=== PATIENT | female | born 1965 | race African-American/Black ===

== ENCOUNTER 2022-11-16 14:54 | Inpatient (IN) | payer MEDICAID, OTHER ==
[~2022-11-16] VITALS: Ht 167.6 cm; Wt 56.7 kg
[2022-11-16] MEDS ORDERED: KETOROLAC 30MG/ML VIAL IV STA (15:27)
[2022-11-16] MEDS ORDERED: SODIUM CHLORIDE 0.9% 1,000 ML IV ONE (15:30)
[2022-11-16 16:08] LABS: BASOPHILS % 0.3 % (0.0-2.0); EOSINOPHILS % 0.1 % (0.0-5.0); HEMATOCRIT. 37.9 % (36.0-48.0); HEMOGLOBIN. 12.6 g/dL (12.0-16.0); LYMPHOCYTES % 12.1 % (20.0-50.0); MEAN CORPUSCULAR HEMOGLOBIN 29.8 pg (28.0-32.0); MEAN CORPUSCULAR VOLUME 89.6 fL (81.0-99.0); MEAN PLATELET VOLUME 9.2 fl (7.4-10.4); MONOCYTES % 3.4 % (2.0-8.0); NEUTROPHILS % 84.1 % (40.0-76.0); PLATELET 683 x1000/uL (130-400); RED BLOOD CELL COUNT 4.23 mill/uL (4.2-5.4); RED CELL DISTRIBUTION WIDTH 14.2 % (11.6-14.6)
[2022-11-16 16:14] LABS: PROTHROMBIN TIME 10.3 sec (9.6-11.0)
[2022-11-16 16:15] LABS: CHLORIDE 86 mEq/L (98-107)
[2022-11-16] MEDS ORDERED: ONDANSETRON HCL 4MG/2ML INJ IV ONE (16:30)
[2022-11-16 16:38] LABS: ETHANOL BLOOD < 10 mg/dL
[2022-11-16] MEDS ORDERED: MORPHINE SULFATE 4 MG/ML CPJ (NOT FOR IM USE) IV STA (16:46)
[2022-11-16] MEDS ORDERED: PIPERACILLIN/TAZOBACTAM 3.375GM/50ML PREMIX IV ONE (17:00)
[2022-11-16] MEDS ORDERED: METRONIDAZOLE 500 MG PREMIX 100 ML IV ONE (17:00)
[2022-11-16] MEDS ORDERED: CEFTRIAXONE 1GM PREMIX 50 ML IV ONE (17:00)
[2022-11-16] MEDS ORDERED: SODIUM CHLORIDE 0.9% 1000ML BAG (SEPSIS BOLUS) IV ONE (17:00)
[2022-11-16] MEDS ORDERED: PIPERACILLIN/TAZOBACTAM 3.375G in DEXT 5% WATER 50ML IV NR (17:30)
[2022-11-16 17:32] LABS: BETA HYDROXYBUTYRATE 4.2 mMol/L (0.0-0.3); PHOSPHORUS 6.2 mg/dL (2.5-4.9)
[2022-11-16] MEDS ORDERED: PIPERACILLIN/TAZ 3.375G PREMIX 50 ML IV NR ×2 (17:45→20:15)
[2022-11-16] MEDS ORDERED: IOHEXOL-350 100 ML BOTTLE ONE (18:09)
[2022-11-16] MEDS ORDERED: MORPHINE SULFATE 4 MG/ML CPJ (NOT FOR IM USE) IV NR (19:00)
[2022-11-16 19:10] LABS: CLARITY URINE CLEAR (CLEAR); COLOR URINE YELLOW (YELLOW); KETONES URINE 1+ (NEGATIVE); LEUKOCYTE ESTERASE URINE NEGATIVE (NEGATIVE); NITRITE URINE NEGATIVE (NEGATIVE); OCCULT BLOOD URINE NEGATIVE (NEGATIVE); PROTEIN URINE NEGATIVE (NEGATIVE); SPECIFIC GRAVITY URINE 1.037 (1.005-1.030); UROBILINOGEN URINE 0.2 E.U./dL (0.2-1.0)
[2022-11-16] MEDS ORDERED: MAGNESIUM/ALUMINUM HYDROXIDE/SIMETHICONE 30ML UDC PO PRN (19:45)
[2022-11-16] MEDS ORDERED: CLONIDINE 0.1MG TABLET PO PRN (19:45)
[2022-11-16] MEDS ORDERED: IPRATROPIUM/ALBUTEROL 0.5-3(2.5)MG/3ML NEB NEB PRN (19:45)
[2022-11-16] MEDS ORDERED: DEXTROSE 50% WATER 50ML SYRINGE IV PRN (19:45)
[2022-11-16] MEDS ORDERED: DOCUSATE SODIUM 100MG CAPSULE PO PRN (19:45)
[2022-11-16] MEDS ORDERED: INSULIN REGULAR (HUMULIN R) 300UNITS/3ML VIAL IV PRN (19:45)
[2022-11-16] MEDS ORDERED: SODIUM BICARBONATE 8.4% 1 MEQ/ML 50ML SYR IV NR (19:45)
[2022-11-16] MEDS ORDERED: GUAIFENESIN 200MG/10ML SUGAR FREE UDC PO PRN (19:45)
[2022-11-16] MEDS ORDERED: ACETAMINOPHEN 325MG TABLET PO PRN (19:45)
[2022-11-16] MEDS ORDERED: SODIUM CHLORIDE 0.45% 1,000 ML IV SCH (20:00)
[2022-11-16] MEDS ORDERED: MAGNESIUM 1 G PREMIX 100 ML IV PRN (20:00)
[2022-11-16] MEDS: DEXT 5%/0.45% NACL 1000ML 1,000 ML IV SCH (20:00)
[2022-11-16] MEDS ORDERED: KCL 20MEQ/100ML PREMIX 100 ML IV PRN (20:00)
[2022-11-16] MEDS ORDERED: SODIUM CHLORIDE 0.9% 1,000 ML IV SCH (20:00)
[2022-11-16] MEDS ORDERED: INSULIN REGULAR 100U/100ML PMX 100 ML IV SCH (20:30)
[2022-11-16] MEDS ORDERED: VANCOMYCIN 1G PREMIX 200 ML IV NR (20:30)
[2022-11-16 20:53] LABS: CHLORIDE 97 mEq/L (98-107)
[2022-11-16 20:54] LABS: BG BASE EXCESS -4.6 mmol/L (-2.0-2.0); BG CARBOXYHEMOGLOBIN 0.5 % (0.5-1.5); BG DEOXYHEMOGLOBIN 2.9 % (0.0-5.0); BG HCO3 ACT 18.1 mmol/L (22.0-26.0); BG METHEMOGLOBIN 0.2 % (0.0-1.5); BG OXYGEN SATURATION 97.1 % (92.0-98.5); BG OXYHEMOGLOBIN 96.4 % (94.0-97.0); BG PH 7.443 (7.350-7.450); BG PO2 94.8 mmHg (75.0-100.0); BG SAMPLE SITE LEFT RADIAL; BG TOTAL HEMOGLOBIN 12.8 g/dL (12.0-18.0); BG VENT MODE ROOM AIR
[2022-11-16] MEDS: ACETAMINOPHEN 325MG TABLET PO PRN (20:57)
[2022-11-16 20:58] LABS: PHOSPHORUS 4.8 mg/dL (2.5-4.9)
[2022-11-16] MEDS: BLOOD SUGAR DIAGNOSTIC STRIP TEST SCH ×3 (21:00→23:15)
[2022-11-16] MEDS ORDERED: KETOROLAC 10MG TABLET PO PRN (22:15)
[2022-11-16] MEDS: ENOXAPARIN 40MG/0.4ML SYR SUBCUT SCH (23:34)
[2022-11-17] MEDS: BLOOD SUGAR DIAGNOSTIC STRIP TEST SCH ×10 (00:15→21:00)
[2022-11-17 00:22] LABS: BASOPHILS % 0.2 % (0.0-2.0); EOSINOPHILS % 0.4 % (0.0-5.0); HEMATOCRIT. 31.5 % (36.0-48.0); HEMOGLOBIN. 10.6 g/dL (12.0-16.0); LYMPHOCYTES % 17.1 % (20.0-50.0); MEAN CORPUSCULAR HEMOGLOBIN 29.5 pg (28.0-32.0); MEAN CORPUSCULAR VOLUME 87.8 fL (81.0-99.0); MEAN PLATELET VOLUME 8.1 fl (7.4-10.4); MONOCYTES % 9.1 % (2.0-8.0); NEUTROPHILS % 73.2 % (40.0-76.0); PLATELET 587 x1000/uL (130-400); RED BLOOD CELL COUNT 3.59 mill/uL (4.2-5.4); RED CELL DISTRIBUTION WIDTH 14.3 % (11.6-14.6)
[2022-11-17 00:26] LABS: CHLORIDE 102 mEq/L (98-107)
[2022-11-17 00:32] LABS: PHOSPHORUS 2.9 mg/dL (2.5-4.9)
[2022-11-17] MEDS ORDERED: PIPERACILLIN/TAZ 3.375G PREMIX 50 ML IV NR (01:00)
[2022-11-17] MEDS: ACETAMINOPHEN 325MG TABLET PO PRN (01:28)
[2022-11-17 03:42] LABS: BASOPHILS % 0.7 % (0.0-2.0); EOSINOPHILS % 0.4 % (0.0-5.0); HEMATOCRIT. 30.9 % (36.0-48.0); HEMOGLOBIN. 10.4 g/dL (12.0-16.0); LYMPHOCYTES % 24.9 % (20.0-50.0); MEAN CORPUSCULAR HEMOGLOBIN 29.5 pg (28.0-32.0); MEAN CORPUSCULAR VOLUME 87.5 fL (81.0-99.0); MONOCYTES % 9.8 % (2.0-8.0); NEUTROPHILS % 64.2 % (40.0-76.0); PLATELET 553 x1000/uL (130-400); RED BLOOD CELL COUNT 3.53 mill/uL (4.2-5.4)
[2022-11-17] MEDS ORDERED: KETOROLAC 30MG/ML VIAL IV PRN (03:45)
[2022-11-17 04:00] LABS: CHLORIDE 102 mEq/L (98-107); PHOSPHORUS 2.8 mg/dL (2.5-4.9)
[2022-11-17] MEDS ORDERED: PIPERACILLIN/TAZOBACTAM 3.375 G in DEXTROSE 5% WATER 50 ML IV SCH (06:00)
[2022-11-17] MEDS: PIPERACILLIN/TAZOBACTAM 3.375 G in DEXTROSE 5% WATER 50 ML IV SCH ×3 (06:15→22:22)
[2022-11-17] MEDS: DEXT 5%/0.45% NACL 1000ML 1,000 ML IV SCH ×3 (06:15→16:00)
[2022-11-17 06:18] LABS: CHLORIDE 105 mEq/L (98-107)
[2022-11-17 06:34] LABS: HDL CHOLESTEROL 30 mg/dL (40-59); LDL CHOLESTEROL 190 mg/dL (5-100); T4 FREE 1.37 ng/dL (0.76-1.46)
[2022-11-17] MEDS ORDERED: DEXTROSE 50% WATER 50ML SYRINGE IV PRN (08:15)
[2022-11-17] MEDS: INSULIN LISPRO 100 UNITS/ML SUBCUT SCH ×6 (08:15→21:00)
[2022-11-17 08:44] LABS: BG BASE EXCESS -0.7 mmol/L (-2.0-2.0); BG CARBOXYHEMOGLOBIN 0.3 % (0.5-1.5); BG DEOXYHEMOGLOBIN 2.3 % (0.0-5.0); BG FRACTION INSPIRED OXYGEN 21; BG HCO3 ACT 22.2 mmol/L (22.0-26.0); BG METHEMOGLOBIN 0.1 % (0.0-1.5); BG OXYGEN SATURATION 97.7 % (92.0-98.5); BG OXYHEMOGLOBIN 97.3 % (94.0-97.0); BG PCO2 30.6 mmHg (35.0-45.0); BG PH 7.478 (7.350-7.450); BG PO2 111.3 mmHg (75.0-100.0); BG SAMPLE SITE RIGHT RADIAL; BG TOTAL HEMOGLOBIN 10.3 g/dL (12.0-18.0); BG VENT MODE ROOM AIR
[2022-11-17] MEDS ORDERED: PANTOPRAZOLE SODIUM 40 MG/VIAL IV SCH (09:00)
[2022-11-17 09:07] LABS: CHLORIDE 102 mEq/L (98-107)
[2022-11-17] MEDS ORDERED: POTASSIUM CHLORIDE 20MEQ/PACKET PO NR ×2 (10:00→19:15)
[2022-11-17] MEDS ORDERED: INSULIN GLARGINE 100 UNITS/ML SUBCUT SCH (10:00)
[2022-11-17] MEDS ORDERED: HYDROCODONE/ACETAMINOPHEN 5/325MG TABLET PO NR (10:45)
[2022-11-17] MEDS ORDERED: MELATONIN 3MG TABLET PO NR (11:00)
[2022-11-17] MEDS: VANCOMYCIN 750MG PREMIX 150 ML IV SCH ×2 (11:04→21:00)
[2022-11-17] MEDS: HYDROCHLOROTHIAZIDE 12.5MG CAPSULE PO SCH (11:04)
[2022-11-17] MEDS: LISINOPRIL 10MG TABLET PO SCH (11:04)
[2022-11-17 13:35] LABS: CHLORIDE 100 mEq/L (98-107)
[2022-11-17 13:42] LABS: PHOSPHORUS 2.5 mg/dL (2.5-4.9)
[2022-11-17 16:27] LABS: CHLORIDE 100 mEq/L (98-107)
[2022-11-17] MEDS ORDERED: NALOXONE HCL 0.4MG/ML VIAL IV PRN (19:00)
[2022-11-17 20:06] LABS: CHLORIDE 100 mEq/L (98-107)
[2022-11-17 20:32] LABS: TOTAL IRON BINDING CAPACITY 316 ug/dL (250-450)
[2022-11-17] MEDS: SODIUM BICARBONATE 8.4% 1 MEQ/ML 50ML SYR IV NR (21:00)
[2022-11-17] MEDS: ATORVASTATIN CALCIUM 20MG TABLET PO SCH (21:00)
[2022-11-17] MEDS: ENOXAPARIN 40MG/0.4ML SYR SUBCUT SCH (21:07)
[2022-11-17 21:12] LABS: FOLIC ACID (FOLATE) SERUM 16.3 ng/mL (>5.38)
[2022-11-17] MEDS ORDERED: HYDRALAZINE 20MG/ML VIAL IV PRN (22:30)
[2022-11-18 00:28] VITALS: BP 138/70
[2022-11-18 01:42] LABS: CHLORIDE 98 mEq/L (98-107)
[2022-11-18] MEDS ORDERED: PANT40TA51 MT (01:53)
[2022-11-18] MEDS ORDERED: EMPA10TA MT (01:57)
[2022-11-18] MEDS ORDERED: LISI-648 MT (01:57)
[2022-11-18] MEDS ORDERED: GLIP5TAB12 MT (01:57)
[2022-11-18] MEDS ORDERED: METF-874 MT (01:57)
[2022-11-18] MEDS: ZOLPIDEM TARTRATE 5MG TABLET PO SCH ×2 (02:49→22:09)
[2022-11-18 04:00] VITALS: BP 108/66
[2022-11-18] MEDS: PIPERACILLIN/TAZOBACTAM 3.375 G in DEXTROSE 5% WATER 50 ML IV SCH ×3 (05:03→22:40)
[2022-11-18] MEDS: BLOOD SUGAR DIAGNOSTIC STRIP TEST SCH ×4 (06:49→21:00)
[2022-11-18] MEDS: INSULIN LISPRO 100 UNITS/ML SUBCUT SCH ×7 (07:01→22:07)
[2022-11-18 07:49] LABS: BASOPHILS % 0.6 % (0.0-2.0); HEMATOCRIT. 28.1 % (36.0-48.0); HEMOGLOBIN. 9.7 g/dL (12.0-16.0); MEAN CORPUSCULAR HEMOGLOBIN 30.7 pg (28.0-32.0); MEAN CORPUSCULAR VOLUME 88.6 fL (81.0-99.0); MEAN PLATELET VOLUME 8.9 fl (7.4-10.4); MONOCYTES % 7.5 % (2.0-8.0); NEUTROPHILS % 55.9 % (40.0-76.0); PLATELET 448 x1000/uL (130-400); RED BLOOD CELL COUNT 3.17 mill/uL (4.2-5.4)
[2022-11-18 08:09] VITALS: BP 121/71
[2022-11-18 09:48] LABS: CHLORIDE 98 mEq/L (98-107)
[2022-11-18] MEDS: LISINOPRIL 10MG TABLET PO SCH (09:54)
[2022-11-18] MEDS: HYDROCHLOROTHIAZIDE 12.5MG CAPSULE PO SCH (09:54)
[2022-11-18] MEDS: ACETAMINOPHEN 325MG TABLET PO PRN (09:54)
[2022-11-18] MEDS: FAMOTIDINE 20MG/2ML VIAL IV SCH ×2 (09:55→22:19)
[2022-11-18] MEDS: VANCOMYCIN 750MG PREMIX 150 ML IV SCH (09:55)
[2022-11-18] MEDS ORDERED: GADOTERATE MEGLUMINE 5 MMOL/10 ML VIAL IV ONE (10:47)
[2022-11-18 12:15] VITALS: BP 130/84
[2022-11-18 16:10] VITALS: BP 117/64
[2022-11-18 20:00] VITALS: BP 135/72
[2022-11-18] MEDS ORDERED: VANCOMYCIN 1G PREMIX 200 ML IV SCH (20:00)
[2022-11-18] MEDS ORDERED: INSULIN GLARGINE 100 UNITS/ML SUBCUT SCH (22:00)
[2022-11-18] MEDS: INSULIN GLARGINE 100 UNITS/ML SUBCUT SCH (22:05)
[2022-11-18] MEDS: ENOXAPARIN 40MG/0.4ML SYR SUBCUT SCH (22:08)
[2022-11-18] MEDS: ATORVASTATIN CALCIUM 20MG TABLET PO SCH (22:17)
[2022-11-18] MEDS: VANCOMYCIN 1G PREMIX 200 ML IV SCH (22:18)
[2022-11-18] MEDS: SODIUM BICARBONATE 8.4% 1 MEQ/ML 50ML SYR IV NR (22:26)
[2022-11-19] VITALS: BP 112/68
[2022-11-19 04:00] VITALS: BP 117/80
[2022-11-19] MEDS: PIPERACILLIN/TAZOBACTAM 3.375 G in DEXTROSE 5% WATER 50 ML IV SCH ×3 (05:26→21:36)
[2022-11-19 06:28] LABS: BASOPHILS % 0.8 % (0.0-2.0); EOSINOPHILS % 0.9 % (0.0-5.0); HEMATOCRIT. 31.9 % (36.0-48.0); HEMOGLOBIN. 10.8 g/dL (12.0-16.0); LYMPHOCYTES % 42.9 % (20.0-50.0); MEAN CORPUSCULAR HEMOGLOBIN 29.9 pg (28.0-32.0); MEAN CORPUSCULAR VOLUME 87.9 fL (81.0-99.0); MEAN PLATELET VOLUME 9.2 fl (7.4-10.4); MONOCYTES % 7.5 % (2.0-8.0); NEUTROPHILS % 47.9 % (40.0-76.0); PLATELET 494 x1000/uL (130-400); RED BLOOD CELL COUNT 3.63 mill/uL (4.2-5.4)
[2022-11-19 06:39] LABS: PROTHROMBIN TIME 10.6 sec (9.6-11.0)
[2022-11-19] MEDS: BLOOD SUGAR DIAGNOSTIC STRIP TEST SCH ×4 (07:40→21:00)
[2022-11-19 08:00] VITALS: BP 102/70
[2022-11-19] MEDS: INSULIN LISPRO 100 UNITS/ML SUBCUT SCH ×7 (08:45→21:00)
[2022-11-19 08:51] LABS: CHLORIDE 95 mEq/L (98-107)
[2022-11-19] MEDS: LISINOPRIL 10MG TABLET PO SCH (09:00)
[2022-11-19] MEDS: FAMOTIDINE 20MG/2ML VIAL IV SCH (09:51)
[2022-11-19] MEDS: VANCOMYCIN 1G PREMIX 200 ML IV SCH ×2 (09:52→21:21)
[2022-11-19] MEDS: HYDROCODONE/ACETAMINOPHEN 5/325MG TABLET PO PRN ×3 (09:52→21:16)
[2022-11-19] MEDS: HYDROCHLOROTHIAZIDE 12.5MG CAPSULE PO SCH (10:20)
[2022-11-19 12:00] VITALS: BP 127/85
[2022-11-19] MEDS ORDERED: POTASSIUM CHLORIDE 20MEQ/PACKET PO NR (13:00)
[2022-11-19 16:00] VITALS: BP 125/87
[2022-11-19 20:00] VITALS: BP 143/74
[2022-11-19] MEDS: ATORVASTATIN CALCIUM 20MG TABLET PO SCH (21:15)
[2022-11-19] MEDS: ZOLPIDEM TARTRATE 5MG TABLET PO SCH (21:15)
[2022-11-19] MEDS: FAMOTIDINE 20MG TABLET PO SCH (21:16)
[2022-11-19] MEDS: ENOXAPARIN 40MG/0.4ML SYR SUBCUT SCH (21:18)
[2022-11-19] MEDS: INSULIN GLARGINE 100 UNITS/ML SUBCUT SCH (21:19)
[2022-11-19] MEDS ORDERED: IPRATROPIUM BROMIDE (0.02%) 0.5MG/2.5ML NEB HHN PRN (22:00)
[2022-11-19] MEDS ORDERED: ALBUTEROL (0.083%) 2.5MG/3ML NEB HHN PRN (22:00)
[2022-11-20] VITALS: BP 115/68
[2022-11-20 04:00] VITALS: BP 100/60
[2022-11-20] MEDS: BLOOD SUGAR DIAGNOSTIC STRIP TEST SCH ×4 (05:20→21:50)
[2022-11-20] MEDS: PIPERACILLIN/TAZOBACTAM 3.375 G in DEXTROSE 5% WATER 50 ML IV SCH (05:20)
[2022-11-20 07:54] LABS: BASOPHILS % 0.6 % (0.0-2.0); EOSINOPHILS % 1.7 % (0.0-5.0); HEMATOCRIT. 30.6 % (36.0-48.0); HEMOGLOBIN. 10.7 g/dL (12.0-16.0); LYMPHOCYTES % 41.6 % (20.0-50.0); MEAN CORPUSCULAR HEMOGLOBIN 30.4 pg (28.0-32.0); MEAN CORPUSCULAR VOLUME 87.5 fL (81.0-99.0); MEAN PLATELET VOLUME 8.2 fl (7.4-10.4); MONOCYTES % 8.8 % (2.0-8.0); NEUTROPHILS % 47.3 % (40.0-76.0); PLATELET 531 x1000/uL (130-400); RED CELL DISTRIBUTION WIDTH 13.8 % (11.6-14.6)
[2022-11-20 08:00] VITALS: BP 124/78
[2022-11-20] MEDS: INSULIN LISPRO 100 UNITS/ML SUBCUT SCH ×7 (08:10→21:00)
[2022-11-20] MEDS: FAMOTIDINE 20MG TABLET PO SCH ×2 (09:17→21:39)
[2022-11-20] MEDS: HYDROCHLOROTHIAZIDE 12.5MG CAPSULE PO SCH (09:17)
[2022-11-20] MEDS: ONDANSETRON HCL 4MG/2ML INJ IV PRN ×2 (09:17→21:49)
[2022-11-20] MEDS: LISINOPRIL 10MG TABLET PO SCH (09:17)
[2022-11-20 10:36] LABS: CHLORIDE 96 mEq/L (98-107)
[2022-11-20 12:00] VITALS: BP 112/71
[2022-11-20] MEDS ORDERED: LACTULOSE 20G/30ML UDC PO PRN (15:45)
[2022-11-20 16:00] VITALS: BP 127/78
[2022-11-20] MEDS: DOCUSATE SODIUM 100MG CAPSULE PO SCH (17:40)
[2022-11-20] MEDS: HYDROCODONE/ACETAMINOPHEN 5/325MG TABLET PO PRN ×2 (18:25→21:39)
[2022-11-20 20:00] VITALS: BP 122/68
[2022-11-20] MEDS: ZOLPIDEM TARTRATE 5MG TABLET PO SCH (21:00)
[2022-11-20] MEDS: ATORVASTATIN CALCIUM 20MG TABLET PO SCH (21:49)
[2022-11-20] MEDS: ENOXAPARIN 40MG/0.4ML SYR SUBCUT SCH (21:51)
[2022-11-20] MEDS: INSULIN GLARGINE 100 UNITS/ML SUBCUT SCH (21:51)
[2022-11-21] VITALS: BP 109/70
[2022-11-21 04:00] VITALS: BP 105/61
[2022-11-21] MEDS: BLOOD SUGAR DIAGNOSTIC STRIP TEST SCH ×4 (07:40→21:00)
[2022-11-21 08:00] VITALS: BP 108/67
[2022-11-21] MEDS: DOCUSATE SODIUM 100MG CAPSULE PO SCH ×2 (09:21→17:24)
[2022-11-21] MEDS: HYDROCHLOROTHIAZIDE 12.5MG CAPSULE PO SCH (09:21)
[2022-11-21] MEDS: FAMOTIDINE 20MG TABLET PO SCH ×2 (09:22→21:28)
[2022-11-21] MEDS: LISINOPRIL 10MG TABLET PO SCH (09:22)
[2022-11-21] MEDS: ONDANSETRON HCL 4MG/2ML INJ IV PRN ×2 (09:22→21:44)
[2022-11-21] MEDS: INSULIN LISPRO 100 UNITS/ML SUBCUT SCH ×7 (09:28→21:00)
[2022-11-21 11:48] LABS: CHLORIDE 99 mEq/L (98-107)
[2022-11-21 11:50] LABS: BASOPHILS % 0.4 % (0.0-2.0); EOSINOPHILS % 0.6 % (0.0-5.0); HEMATOCRIT. 31.2 % (36.0-48.0); HEMOGLOBIN. 10.3 g/dL (12.0-16.0); LYMPHOCYTES % 20.6 % (20.0-50.0); MEAN CORPUSCULAR HEMOGLOBIN 29.7 pg (28.0-32.0); MEAN CORPUSCULAR VOLUME 89.6 fL (81.0-99.0); MEAN PLATELET VOLUME 9.1 fl (7.4-10.4); MONOCYTES % 8.2 % (2.0-8.0); NEUTROPHILS % 70.2 % (40.0-76.0); PLATELET 566 x1000/uL (130-400); RED BLOOD CELL COUNT 3.48 mill/uL (4.2-5.4); RED CELL DISTRIBUTION WIDTH 14.3 % (11.6-14.6)
[2022-11-21 12:00] VITALS: BP 107/77
[2022-11-21] MEDS: SODIUM CHLORIDE 0.9% 1,000 ML IV SCH (12:55)
[2022-11-21] MEDS: PIPERACILLIN/TAZOBACTAM 3.375 G in DEXTROSE 5% WATER 50 ML IV SCH ×2 (14:16→21:29)
[2022-11-21 16:00] VITALS: BP 107/66
[2022-11-21] MEDS: HYDROCODONE/ACETAMINOPHEN 5/325MG TABLET PO PRN (17:24)
[2022-11-21 20:00] VITALS: BP 133/76
[2022-11-21 20:20] LABS: CHLORIDE 100 mEq/L (98-107)
[2022-11-21] MEDS: ZOLPIDEM TARTRATE 5MG TABLET PO SCH (21:28)
[2022-11-21] MEDS: ATORVASTATIN CALCIUM 20MG TABLET PO SCH (21:28)
[2022-11-21] MEDS: ENOXAPARIN 40MG/0.4ML SYR SUBCUT SCH (21:28)
[2022-11-21] MEDS: INSULIN GLARGINE 100 UNITS/ML SUBCUT SCH (21:46)
[2022-11-22] VITALS: BP 115/76
[2022-11-22 04:00] VITALS: BP 120/75
[2022-11-22] MEDS: PIPERACILLIN/TAZOBACTAM 3.375 G in DEXTROSE 5% WATER 50 ML IV SCH ×3 (06:01→21:47)
[2022-11-22 06:05] LABS: BASOPHILS % 0.7 % (0.0-2.0); EOSINOPHILS % 1.9 % (0.0-5.0); HEMATOCRIT. 30.5 % (36.0-48.0); HEMOGLOBIN. 10.1 g/dL (12.0-16.0); LYMPHOCYTES % 35.9 % (20.0-50.0); MEAN CORPUSCULAR HEMOGLOBIN 29.4 pg (28.0-32.0); MEAN CORPUSCULAR VOLUME 88.9 fL (81.0-99.0); MEAN PLATELET VOLUME 8.7 fl (7.4-10.4); MONOCYTES % 9.5 % (2.0-8.0); PLATELET 513 x1000/uL (130-400); RED BLOOD CELL COUNT 3.44 mill/uL (4.2-5.4); RED CELL DISTRIBUTION WIDTH 14.5 % (11.6-14.6)
[2022-11-22 06:36] LABS: PHOSPHORUS 3.3 mg/dL (2.5-4.9)
[2022-11-22] MEDS: BLOOD SUGAR DIAGNOSTIC STRIP TEST SCH ×4 (07:40→21:00)
[2022-11-22] MEDS: LISINOPRIL 10MG TABLET PO SCH (09:18)
[2022-11-22] MEDS: HYDROCHLOROTHIAZIDE 12.5MG CAPSULE PO SCH (09:18)
[2022-11-22] MEDS: DOCUSATE SODIUM 100MG CAPSULE PO SCH ×2 (09:18→16:15)
[2022-11-22] MEDS: INSULIN LISPRO 100 UNITS/ML SUBCUT SCH ×7 (09:20→21:49)
[2022-11-22] MEDS: FAMOTIDINE 20MG TABLET PO SCH ×2 (09:24→21:46)
[2022-11-22] MEDS: HYDROCODONE/ACETAMINOPHEN 5/325MG TABLET PO PRN ×3 (09:25→21:46)
[2022-11-22 09:36] VITALS: BP 119/66
[2022-11-22 12:10] VITALS: BP 124/73
[2022-11-22] MEDS: SODIUM CHLORIDE 0.9% 1,000 ML IV SCH (12:53)
[2022-11-22 16:00] VITALS: BP 118/69
[2022-11-22 20:00] VITALS: BP 110/60
[2022-11-22] MEDS: ATORVASTATIN CALCIUM 20MG TABLET PO SCH (21:46)
[2022-11-22] MEDS: ENOXAPARIN 40MG/0.4ML SYR SUBCUT SCH (21:46)
[2022-11-22] MEDS: ZOLPIDEM TARTRATE 5MG TABLET PO SCH (21:46)
[2022-11-22] MEDS: INSULIN GLARGINE 100 UNITS/ML SUBCUT SCH (21:48)
[2022-11-23] VITALS: BP 118/72
[2022-11-23 04:00] VITALS: BP 124/40
[2022-11-23] MEDS: PIPERACILLIN/TAZOBACTAM 3.375 G in DEXTROSE 5% WATER 50 ML IV SCH ×3 (05:52→21:35)
[2022-11-23] MEDS: BLOOD SUGAR DIAGNOSTIC STRIP TEST SCH ×4 (05:57→21:00)
[2022-11-23 06:51] LABS: EOSINOPHILS % 2.5 % (0.0-5.0); HEMATOCRIT. 27.9 % (36.0-48.0); HEMOGLOBIN. 9.4 g/dL (12.0-16.0); LYMPHOCYTES % 27.3 % (20.0-50.0); MEAN CORPUSCULAR HEMOGLOBIN 29.9 pg (28.0-32.0); MEAN CORPUSCULAR VOLUME 89.1 fL (81.0-99.0); MEAN PLATELET VOLUME 8.7 fl (7.4-10.4); MONOCYTES % 10.6 % (2.0-8.0); NEUTROPHILS % 58.6 % (40.0-76.0); PLATELET 443 x1000/uL (130-400); RED BLOOD CELL COUNT 3.13 mill/uL (4.2-5.4); RED CELL DISTRIBUTION WIDTH 14.4 % (11.6-14.6)
[2022-11-23 08:17] VITALS: BP 123/63
[2022-11-23 08:31] LABS: AMYLASE 443 IU/L (25-115); CHLORIDE 107 mEq/L (98-107)
[2022-11-23] MEDS: INSULIN LISPRO 100 UNITS/ML SUBCUT SCH ×7 (08:35→21:35)
[2022-11-23] MEDS: HYDROCHLOROTHIAZIDE 12.5MG CAPSULE PO SCH (08:36)
[2022-11-23] MEDS: DOCUSATE SODIUM 100MG CAPSULE PO SCH ×2 (08:36→17:00)
[2022-11-23] MEDS: LISINOPRIL 10MG TABLET PO SCH (08:36)
[2022-11-23] MEDS: FAMOTIDINE 20MG TABLET PO SCH ×2 (08:37→20:38)
[2022-11-23] MEDS: HYDROCODONE/ACETAMINOPHEN 5/325MG TABLET PO PRN ×2 (08:43→12:00)
[2022-11-23] MEDS ORDERED: NALOXONE HCL 0.4MG/ML VIAL IV PRN (09:00)
[2022-11-23 12:14] VITALS: BP 126/61
[2022-11-23] MEDS ORDERED: MORPHINE SULFATE 2 MG/ML CPJ (NOT FOR IM USE) IV NR (13:00)
[2022-11-23] MEDS: ONDANSETRON HCL 4MG/2ML INJ IV PRN (13:05)
[2022-11-23 15:58] VITALS: BP 126/53
[2022-11-23 20:00] VITALS: BP 127/63
[2022-11-23] MEDS: ATORVASTATIN CALCIUM 20MG TABLET PO SCH (20:38)
[2022-11-23] MEDS: ENOXAPARIN 40MG/0.4ML SYR SUBCUT SCH (20:39)
[2022-11-23] MEDS: INSULIN GLARGINE 100 UNITS/ML SUBCUT SCH (21:34)
[2022-11-23] MEDS: SODIUM CHLORIDE 0.9% 1,000 ML IV SCH (21:40)
[2022-11-24] VITALS: BP 142/73
[2022-11-24 00:02] VITALS: BP 117/68
[2022-11-24 04:00] VITALS: BP 136/68
[2022-11-24] MEDS: PIPERACILLIN/TAZOBACTAM 3.375 G in DEXTROSE 5% WATER 50 ML IV SCH ×2 (05:04→14:14)
[2022-11-24 06:03] LABS: HEMATOCRIT. 28.8 % (36.0-48.0); HEMOGLOBIN. 9.6 g/dL (12.0-16.0); MEAN CORPUSCULAR HEMOGLOBIN 29.3 pg (28.0-32.0); MEAN PLATELET VOLUME 8.7 fl (7.4-10.4); PLATELET 475 x1000/uL (130-400); RED BLOOD CELL COUNT 3.27 mill/uL (4.2-5.4); RED CELL DISTRIBUTION WIDTH 14.3 % (11.6-14.6)
[2022-11-24] MEDS: ONDANSETRON HCL 4MG/2ML INJ IV PRN (06:22)
[2022-11-24] MEDS: BLOOD SUGAR DIAGNOSTIC STRIP TEST SCH ×4 (06:40→20:24)
[2022-11-24] MEDS: FAMOTIDINE 20MG TABLET PO SCH ×2 (08:09→20:30)
[2022-11-24] MEDS: DOCUSATE SODIUM 100MG CAPSULE PO SCH ×2 (08:09→17:00)
[2022-11-24] MEDS: HYDROCHLOROTHIAZIDE 12.5MG CAPSULE PO SCH (08:09)
[2022-11-24] MEDS: INSULIN LISPRO 100 UNITS/ML SUBCUT SCH ×7 (08:10→20:35)
[2022-11-24] MEDS: SODIUM CHLORIDE 0.9% 1,000 ML IV SCH (08:45)
[2022-11-24 09:57] LABS: CHLORIDE 103 mEq/L (98-107)
[2022-11-24] MEDS: LISINOPRIL 10MG TABLET PO SCH (09:59)
[2022-11-24 10:09] LABS: AMYLASE 188 IU/L (25-115)
[2022-11-24] MEDS ORDERED: POTASSIUM CHLORIDE 20MEQ TABLET SR PO NR (12:45)
[2022-11-24 15:24] LABS: PLATELET ESTIMATE SLIGHTLY INCREASED
[2022-11-24 20:00] VITALS: BP 148/67
[2022-11-24] MEDS: METRONIDAZOLE 500 MG PREMIX 100 ML IV SCH (20:30)
[2022-11-24] MEDS: ATORVASTATIN CALCIUM 20MG TABLET PO SCH (20:32)
[2022-11-24] MEDS: INSULIN GLARGINE 100 UNITS/ML SUBCUT SCH (20:34)
[2022-11-25] VITALS: BP 132/71
[2022-11-25 02:57] LABS: BASOPHILS % 0.3 % (0.0-2.0); EOSINOPHILS % 0.9 % (0.0-5.0); HEMATOCRIT. 25.2 % (36.0-48.0); HEMOGLOBIN. 8.4 g/dL (12.0-16.0); LYMPHOCYTES % 16.1 % (20.0-50.0); MEAN CORPUSCULAR HEMOGLOBIN 29.5 pg (28.0-32.0); MEAN CORPUSCULAR VOLUME 87.9 fL (81.0-99.0); MEAN PLATELET VOLUME 8.2 fl (7.4-10.4); MONOCYTES % 9.1 % (2.0-8.0); NEUTROPHILS % 73.6 % (40.0-76.0); PLATELET 384 x1000/uL (130-400); RED BLOOD CELL COUNT 2.86 mill/uL (4.2-5.4); RED CELL DISTRIBUTION WIDTH 14.8 % (11.6-14.6)
[2022-11-25 03:02] LABS: INR 1.1; PROTHROMBIN TIME 11.6 sec (9.6-11.0)
[2022-11-25] MEDS: DEXT 5%/0.9% NACL 1,000 ML IV SCH ×3 (03:15→13:29)
[2022-11-25 03:42] LABS: CHLORIDE 106 mEq/L (98-107)
[2022-11-25 04:00] VITALS: BP 124/71
[2022-11-25 04:06] LABS: PHOSPHORUS 2.5 mg/dL (2.5-4.9)
[2022-11-25] MEDS: BLOOD SUGAR DIAGNOSTIC STRIP TEST SCH ×4 (06:14→20:35)
[2022-11-25] MEDS: METRONIDAZOLE 500 MG PREMIX 100 ML IV SCH ×3 (06:25→20:36)
[2022-11-25] MEDS: INSULIN LISPRO 100 UNITS/ML SUBCUT SCH ×7 (06:38→20:36)
[2022-11-25 08:00] VITALS: BP 127/73
[2022-11-25] MEDS ORDERED: FENTANYL CITRATE/PF 50MCG/ML 2ML VIAL ONE ×2 (08:53→10:40)
[2022-11-25] MEDS ORDERED: MIDAZOLAM HCL 2 MG/2 ML VIAL ONE (08:53)
[2022-11-25] MEDS ORDERED: LIDOCAINE HCL 1% 20ML VIAL (Pyxis) INJ ONE (08:54)
[2022-11-25] MEDS ORDERED: PROPOFOL 200MG/20ML VIAL IV ONE ×3 (08:54→10:28)
[2022-11-25] MEDS ORDERED: LIDOCAINE HCL 1% 10 MG/ML 10ML VIAL ONE (08:56)
[2022-11-25] MEDS ORDERED: IOHEXOL-300 50 ML BOTTLE IV ONE (08:57)
[2022-11-25] MEDS ORDERED: ONDANSETRON HCL 4MG/2ML INJ ONE (10:52)
[2022-11-25] MEDS ORDERED: KETOROLAC 30MG/ML VIAL ONE (10:52)
[2022-11-25] MEDS ORDERED: ONDANSETRON HCL 4MG/2ML INJ IV PRN (11:30)
[2022-11-25] MEDS ORDERED: MORPHINE SULFATE 2 MG/ML CPJ (NOT FOR IM USE) IV PRN (11:30)
[2022-11-25 12:00] VITALS: BP 160/81
[2022-11-25] MEDS: LISINOPRIL 10MG TABLET PO SCH (13:28)
[2022-11-25] MEDS: HYDROCHLOROTHIAZIDE 12.5MG CAPSULE PO SCH (13:28)
[2022-11-25] MEDS: DOCUSATE SODIUM 100MG CAPSULE PO SCH ×3 (13:28→17:50)
[2022-11-25] MEDS: FAMOTIDINE 20MG TABLET PO SCH (13:29)
[2022-11-25] MEDS ORDERED: POTASSIUM CHLORIDE 20MEQ TABLET SR PO NR (15:00)
[2022-11-25 16:00] VITALS: BP 138/72
[2022-11-25] MEDS ORDERED: MAGNESIUM 2 G PREMIX 50 ML IV NR (16:00)
[2022-11-25] MEDS: HYDROCODONE/ACETAMINOPHEN 5/325MG TABLET PO PRN ×2 (17:24→21:24)
[2022-11-25 20:00] VITALS: BP 154/76
[2022-11-25] MEDS: LEVOFLOXACIN 500MG PREMIX 100 ML IV SCH ×2 (20:34→20:38)
[2022-11-25] MEDS: ATORVASTATIN CALCIUM 20MG TABLET PO SCH (20:35)
[2022-11-25] MEDS: INSULIN GLARGINE 100 UNITS/ML SUBCUT SCH (20:36)
[2022-11-26] VITALS: BP 120/58
[2022-11-26] MEDS: HYDROCODONE/ACETAMINOPHEN 5/325MG TABLET PO PRN ×5 (01:23→22:05)
[2022-11-26] MEDS: ONDANSETRON HCL 4MG/2ML INJ IV PRN ×3 (03:26→17:57)
[2022-11-26 04:00] VITALS: BP 157/77
[2022-11-26] MEDS: METRONIDAZOLE 500 MG PREMIX 100 ML IV SCH ×3 (05:30→22:05)
[2022-11-26] MEDS: INSULIN LISPRO 100 UNITS/ML SUBCUT SCH ×7 (05:31→20:28)
[2022-11-26] MEDS: BLOOD SUGAR DIAGNOSTIC STRIP TEST SCH ×4 (05:31→20:28)
[2022-11-26 06:53] LABS: BASOPHILS % 0.6 % (0.0-2.0); EOSINOPHILS % 0.5 % (0.0-5.0); HEMATOCRIT. 23.2 % (36.0-48.0); HEMOGLOBIN. 8.1 g/dL (12.0-16.0); LYMPHOCYTES % 15.3 % (20.0-50.0); MEAN CORPUSCULAR HEMOGLOBIN 30.3 pg (28.0-32.0); MEAN CORPUSCULAR VOLUME 87.1 fL (81.0-99.0); MEAN PLATELET VOLUME 8.7 fl (7.4-10.4); MONOCYTES % 8.4 % (2.0-8.0); NEUTROPHILS % 75.2 % (40.0-76.0); PLATELET 365 x1000/uL (130-400); RED BLOOD CELL COUNT 2.66 mill/uL (4.2-5.4); RED CELL DISTRIBUTION WIDTH 14.7 % (11.6-14.6)
[2022-11-26 08:00] VITALS: BP 133/59
[2022-11-26 08:00] LABS: CHLORIDE 103 mEq/L (98-107)
[2022-11-26 08:21] LABS: AMYLASE 304 IU/L (25-115); PHOSPHORUS 2.8 mg/dL (2.5-4.9)
[2022-11-26] MEDS: DOCUSATE SODIUM 100MG CAPSULE PO SCH ×2 (09:28→17:57)
[2022-11-26] MEDS: PANTOPRAZOLE SODIUM 40 MG/VIAL IV SCH (09:28)
[2022-11-26] MEDS: HYDROCHLOROTHIAZIDE 12.5MG CAPSULE PO SCH (09:28)
[2022-11-26] MEDS: LISINOPRIL 10MG TABLET PO SCH (09:28)
[2022-11-26] MEDS ORDERED: POTASSIUM CHLORIDE 20MEQ/PACKET PO NR (09:45)
[2022-11-26 12:00] VITALS: BP 135/62
[2022-11-26] MEDS ORDERED: IBUP-2030 PO (12:23)
[2022-11-26] MEDS ORDERED: CIPR500T5 PO (12:23)
[2022-11-26] MEDS ORDERED: ONDA4TAB50 MT (12:23)
[2022-11-26] MEDS ORDERED: METR-167 PO (12:23)
[2022-11-26 16:00] VITALS: BP 126/59
[2022-11-26 20:00] VITALS: BP 142/66
[2022-11-26] MEDS: LEVOFLOXACIN 500MG PREMIX 100 ML IV SCH (20:36)
[2022-11-26] MEDS: ATORVASTATIN CALCIUM 20MG TABLET PO SCH (20:37)
[2022-11-26] MEDS: ENOXAPARIN 40MG/0.4ML SYR SUBCUT SCH (20:37)
[2022-11-26] MEDS: INSULIN GLARGINE 100 UNITS/ML SUBCUT SCH (21:03)
[2022-11-27] VITALS: BP 147/71
[2022-11-27] MEDS: ONDANSETRON HCL 4MG/2ML INJ IV PRN ×3 (00:25→21:19)
[2022-11-27 04:00] VITALS: BP 138/71
[2022-11-27] MEDS: HYDROCODONE/ACETAMINOPHEN 5/325MG TABLET PO PRN ×4 (05:53→19:51)
[2022-11-27] MEDS: METRONIDAZOLE 500 MG PREMIX 100 ML IV SCH ×3 (05:53→22:55)
[2022-11-27] MEDS: INSULIN LISPRO 100 UNITS/ML SUBCUT SCH ×7 (06:22→20:41)
[2022-11-27] MEDS: BLOOD SUGAR DIAGNOSTIC STRIP TEST SCH ×4 (06:22→20:41)
[2022-11-27 08:01] VITALS: BP 150/75
[2022-11-27] MEDS: PANTOPRAZOLE SODIUM 40 MG/VIAL IV SCH (09:00)
[2022-11-27] MEDS: DOCUSATE SODIUM 100MG CAPSULE PO SCH ×2 (09:00→17:44)
[2022-11-27] MEDS: LISINOPRIL 10MG TABLET PO SCH (09:37)
[2022-11-27] MEDS: HYDROCHLOROTHIAZIDE 12.5MG CAPSULE PO SCH (09:39)
[2022-11-27 09:41] LABS: BASOPHILS % 1.2 % (0.0-2.0); EOSINOPHILS % 0.8 % (0.0-5.0); HEMATOCRIT. 24.9 % (36.0-48.0); HEMOGLOBIN. 8.5 g/dL (12.0-16.0); LYMPHOCYTES % 24.4 % (20.0-50.0); MEAN CORPUSCULAR HEMOGLOBIN 30.1 pg (28.0-32.0); MEAN CORPUSCULAR VOLUME 87.8 fL (81.0-99.0); MEAN PLATELET VOLUME 8.5 fl (7.4-10.4); MONOCYTES % 8.6 % (2.0-8.0); PLATELET 406 x1000/uL (130-400); RED BLOOD CELL COUNT 2.83 mill/uL (4.2-5.4); RED CELL DISTRIBUTION WIDTH 14.7 % (11.6-14.6)
[2022-11-27 09:55] LABS: CHLORIDE 100 mEq/L (98-107)
[2022-11-27 10:03] LABS: PHOSPHORUS 2.7 mg/dL (2.5-4.9)
[2022-11-27 11:48] VITALS: BP 148/70
[2022-11-27] MEDS ORDERED: POTASSIUM CHLORIDE 20MEQ/PACKET PO NR (14:00)
[2022-11-27] MEDS ORDERED: MAGNESIUM 2 G PREMIX 50 ML IV NR (15:00)
[2022-11-27 15:41] VITALS: BP 156/74
[2022-11-27 20:00] VITALS: BP 146/82
[2022-11-27] MEDS: ATORVASTATIN CALCIUM 20MG TABLET PO SCH (20:41)
[2022-11-27] MEDS: ENOXAPARIN 40MG/0.4ML SYR SUBCUT SCH (20:41)
[2022-11-27] MEDS: LEVOFLOXACIN 500MG PREMIX 100 ML IV SCH (21:38)
[2022-11-27] MEDS: INSULIN GLARGINE 100 UNITS/ML SUBCUT SCH (21:39)
[2022-11-28] VITALS: BP 154/77
[2022-11-28] MEDS: HYDROCODONE/ACETAMINOPHEN 5/325MG TABLET PO PRN ×6 (01:00→20:13)
[2022-11-28] MEDS: ONDANSETRON HCL 4MG/2ML INJ IV PRN ×3 (03:48→20:23)
[2022-11-28 04:00] VITALS: BP 137/69
[2022-11-28] MEDS: METRONIDAZOLE 500 MG PREMIX 100 ML IV SCH ×3 (05:28→21:20)
[2022-11-28] MEDS: INSULIN LISPRO 100 UNITS/ML SUBCUT SCH ×7 (06:17→20:25)
[2022-11-28] MEDS: BLOOD SUGAR DIAGNOSTIC STRIP TEST SCH ×4 (06:17→20:25)
[2022-11-28 06:33] LABS: HEMATOCRIT. 24.8 % (36.0-48.0); HEMOGLOBIN. 8.5 g/dL (12.0-16.0); MEAN CORPUSCULAR HEMOGLOBIN 30.3 pg (28.0-32.0); MEAN CORPUSCULAR VOLUME 88.1 fL (81.0-99.0); MEAN PLATELET VOLUME 8.1 fl (7.4-10.4); PLATELET 447 x1000/uL (130-400); RED BLOOD CELL COUNT 2.81 mill/uL (4.2-5.4)
[2022-11-28 07:34] LABS: CHLORIDE 99 mEq/L (98-107)
[2022-11-28 08:00] VITALS: BP 138/70
[2022-11-28] MEDS: HYDROCHLOROTHIAZIDE 12.5MG CAPSULE PO SCH (08:59)
[2022-11-28] MEDS: LISINOPRIL 10MG TABLET PO SCH (09:03)
[2022-11-28] MEDS: PANTOPRAZOLE SODIUM 40 MG/VIAL IV SCH (09:04)
[2022-11-28] MEDS: DOCUSATE SODIUM 100MG CAPSULE PO SCH ×2 (09:04→17:13)
[2022-11-28] MEDS ORDERED: MAGNESIUM 2 G PREMIX 50 ML IV NR (09:30)
[2022-11-28 12:00] VITALS: BP 154/94
[2022-11-28 13:09] LABS: PLATELET ESTIMATE SLIGHTLY INCREASED
[2022-11-28] MEDS ORDERED: NALOXONE HCL 0.4MG/ML VIAL IV PRN (13:15)
[2022-11-28 16:00] VITALS: BP 137/72
[2022-11-28] MEDS: LEVOFLOXACIN 500MG PREMIX 100 ML IV SCH (19:22)
[2022-11-28 20:00] VITALS: BP 112/94
[2022-11-28] MEDS: ENOXAPARIN 40MG/0.4ML SYR SUBCUT SCH (20:12)
[2022-11-28] MEDS: ATORVASTATIN CALCIUM 20MG TABLET PO SCH (20:12)
[2022-11-28] MEDS: INSULIN GLARGINE 100 UNITS/ML SUBCUT SCH (21:21)
[2022-11-29] VITALS: BP 121/72
[2022-11-29] MEDS: HYDROCODONE/ACETAMINOPHEN 5/325MG TABLET PO PRN ×5 (01:19→20:46)
[2022-11-29 04:00] VITALS: BP 125/85
[2022-11-29] MEDS: METRONIDAZOLE 500 MG PREMIX 100 ML IV SCH ×2 (05:49→13:02)
[2022-11-29 05:52] LABS: HEMATOCRIT. 26.8 % (36.0-48.0); HEMOGLOBIN. 9.3 g/dL (12.0-16.0); MEAN CORPUSCULAR HEMOGLOBIN 30.4 pg (28.0-32.0); MEAN CORPUSCULAR VOLUME 87.7 fL (81.0-99.0); MEAN PLATELET VOLUME 8.2 fl (7.4-10.4); PLATELET 501 x1000/uL (130-400); RED BLOOD CELL COUNT 3.06 mill/uL (4.2-5.4); RED CELL DISTRIBUTION WIDTH 15.3 % (11.6-14.6)
[2022-11-29] MEDS: BLOOD SUGAR DIAGNOSTIC STRIP TEST SCH ×4 (06:38→20:46)
[2022-11-29] MEDS: INSULIN LISPRO 100 UNITS/ML SUBCUT SCH ×7 (06:38→20:46)
[2022-11-29 06:58] LABS: CHLORIDE 99 mEq/L (98-107)
[2022-11-29 07:11] LABS: PHOSPHORUS 3.4 mg/dL (2.5-4.9)
[2022-11-29 08:00] VITALS: BP 138/75
[2022-11-29] MEDS: PANTOPRAZOLE SODIUM 40 MG/VIAL IV SCH (08:57)
[2022-11-29] MEDS: DOCUSATE SODIUM 100MG CAPSULE PO SCH ×2 (08:58→16:40)
[2022-11-29] MEDS: ONDANSETRON HCL 4MG/2ML INJ IV PRN ×2 (08:58→16:40)
[2022-11-29] MEDS: LISINOPRIL 10MG TABLET PO SCH (08:58)
[2022-11-29] MEDS: HYDROCHLOROTHIAZIDE 12.5MG CAPSULE PO SCH (08:58)
[2022-11-29] MEDS ORDERED: POTASSIUM CHLORIDE 20MEQ/PACKET PO NR (09:30)
[2022-11-29 12:00] VITALS: BP 135/68
[2022-11-29] MEDS ORDERED: POTASSIUM CHLORIDE 20MEQ TABLET SR PO NR (12:45)
[2022-11-29 14:14] LABS: PLATELET ESTIMATE INCREASED
[2022-11-29 16:00] VITALS: BP 124/72
[2022-11-29] MEDS: LEVOFLOXACIN 500MG PREMIX 100 ML IV SCH (18:29)
[2022-11-29 20:00] VITALS: BP 138/74
[2022-11-29] MEDS: ENOXAPARIN 40MG/0.4ML SYR SUBCUT SCH (20:45)
[2022-11-29] MEDS: ATORVASTATIN CALCIUM 20MG TABLET PO SCH (20:46)
[2022-11-29] MEDS: INSULIN GLARGINE 100 UNITS/ML SUBCUT SCH (21:29)
[2022-11-30] VITALS: BP 128/69
[2022-11-30] MEDS: ONDANSETRON HCL 4MG/2ML INJ IV PRN ×3 (00:44→19:49)
[2022-11-30] MEDS: HYDROCODONE/ACETAMINOPHEN 5/325MG TABLET PO PRN ×5 (00:44→23:47)
[2022-11-30 04:00] VITALS: BP 130/69
[2022-11-30 06:30] LABS: HEMATOCRIT. 28.4 % (36.0-48.0); HEMOGLOBIN. 9.7 g/dL (12.0-16.0); MEAN CORPUSCULAR HEMOGLOBIN 29.9 pg (28.0-32.0); MEAN CORPUSCULAR VOLUME 87.8 fL (81.0-99.0); MEAN PLATELET VOLUME 8.1 fl (7.4-10.4); PLATELET 529 x1000/uL (130-400); RED BLOOD CELL COUNT 3.23 mill/uL (4.2-5.4); RED CELL DISTRIBUTION WIDTH 15.4 % (11.6-14.6)
[2022-11-30 07:15] LABS: CHLORIDE 100 mEq/L (98-107)
[2022-11-30 08:00] VITALS: BP 126/65
[2022-11-30] MEDS: BLOOD SUGAR DIAGNOSTIC STRIP TEST SCH ×4 (08:24→21:18)
[2022-11-30] MEDS: DOCUSATE SODIUM 100MG CAPSULE PO SCH ×2 (08:25→16:19)
[2022-11-30] MEDS: LISINOPRIL 10MG TABLET PO SCH (08:25)
[2022-11-30] MEDS: HYDROCHLOROTHIAZIDE 12.5MG CAPSULE PO SCH (08:25)
[2022-11-30] MEDS: PANTOPRAZOLE SODIUM 40 MG/VIAL IV SCH (08:25)
[2022-11-30] MEDS: INSULIN LISPRO 100 UNITS/ML SUBCUT SCH ×7 (08:26→21:18)
[2022-11-30] MEDS: METRONIDAZOLE 500 MG PREMIX 100 ML IV SCH ×3 (10:40→22:10)
[2022-11-30 10:52] LABS: PLATELET ESTIMATE INCREASED
[2022-11-30] MEDS ORDERED: MAGNESIUM 2 G PREMIX 50 ML IV SCH (11:00)
[2022-11-30 12:00] VITALS: BP 115/70
[2022-11-30 16:00] VITALS: BP 123/76
[2022-11-30] MEDS: LEVOFLOXACIN 500MG PREMIX 100 ML IV SCH (17:02)
[2022-11-30 20:00] VITALS: BP 126/71
[2022-11-30] MEDS: ATORVASTATIN CALCIUM 20MG TABLET PO SCH (21:17)
[2022-11-30] MEDS: INSULIN GLARGINE 100 UNITS/ML SUBCUT SCH (21:18)
[2022-12-01] VITALS: BP 142/77
[2022-12-01] MEDS ORDERED: DEXT 5%/0.9% NACL 1,000 ML IV SCH
[2022-12-01] MEDS: ONDANSETRON HCL 4MG/2ML INJ IV PRN ×3 (03:01→17:59)
[2022-12-01 03:04] LABS: HEMATOCRIT. 29.1 % (36.0-48.0); HEMOGLOBIN. 10.1 g/dL (12.0-16.0); MEAN CORPUSCULAR HEMOGLOBIN 30.3 pg (28.0-32.0); MEAN CORPUSCULAR VOLUME 87.4 fL (81.0-99.0); MEAN PLATELET VOLUME 7.6 fl (7.4-10.4); PLATELET 556 x1000/uL (130-400); RED BLOOD CELL COUNT 3.33 mill/uL (4.2-5.4); RED CELL DISTRIBUTION WIDTH 15.2 % (11.6-14.6)
[2022-12-01 03:15] LABS: INR 1.1; PROTHROMBIN TIME 11.6 sec (9.6-11.0)
[2022-12-01 03:42] LABS: CHLORIDE 99 mEq/L (98-107)
[2022-12-01 04:00] VITALS: BP 124/75
[2022-12-01] MEDS: BLOOD SUGAR DIAGNOSTIC STRIP TEST SCH ×4 (05:35→21:00)
[2022-12-01] MEDS: METRONIDAZOLE 500 MG PREMIX 100 ML IV SCH ×3 (05:36→21:41)
[2022-12-01 08:00] VITALS: BP 134/83
[2022-12-01] MEDS: PANTOPRAZOLE SODIUM 40 MG/VIAL IV SCH (08:46)
[2022-12-01] MEDS: HYDROCHLOROTHIAZIDE 12.5MG CAPSULE PO SCH (08:47)
[2022-12-01] MEDS: DOCUSATE SODIUM 100MG CAPSULE PO SCH ×2 (08:47→17:00)
[2022-12-01] MEDS: LISINOPRIL 10MG TABLET PO SCH (08:47)
[2022-12-01] MEDS: INSULIN LISPRO 100 UNITS/ML SUBCUT SCH ×7 (08:48→21:40)
[2022-12-01] MEDS ORDERED: PROPOFOL 200MG/20ML VIAL IV ONE ×2 (12:10→12:59)
[2022-12-01] MEDS ORDERED: ONDANSETRON HCL 4MG/2ML INJ ONE (12:11)
[2022-12-01] MEDS ORDERED: MIDAZOLAM HCL 2 MG/2 ML VIAL ONE (12:11)
[2022-12-01] MEDS ORDERED: DEXAMETHASONE 4MG/ML 1ML VIAL ONE (12:11)
[2022-12-01 13:02] LABS: PLATELET ESTIMATE INCREASED
[2022-12-01] MEDS: HYDROCODONE/ACETAMINOPHEN 5/325MG TABLET PO PRN (18:00)
[2022-12-01] MEDS: LEVOFLOXACIN 500MG PREMIX 100 ML IV SCH (18:39)
[2022-12-01 20:00] VITALS: BP 114/71
[2022-12-01] MEDS: ENOXAPARIN 40MG/0.4ML SYR SUBCUT SCH (21:31)
[2022-12-01] MEDS: ATORVASTATIN CALCIUM 20MG TABLET PO SCH (21:31)
[2022-12-01] MEDS: INSULIN GLARGINE 100 UNITS/ML SUBCUT SCH (21:40)
[2022-12-02] VITALS: BP 128/99
[2022-12-02] MEDS: ONDANSETRON HCL 4MG/2ML INJ IV PRN ×3 (00:53→23:14)
[2022-12-02] MEDS: MELATONIN 3MG TABLET PO PRN (01:10)
[2022-12-02 04:00] VITALS: BP 136/79
[2022-12-02] MEDS: BLOOD SUGAR DIAGNOSTIC STRIP TEST SCH ×4 (06:14→21:16)
[2022-12-02] MEDS: METRONIDAZOLE 500 MG PREMIX 100 ML IV SCH ×3 (06:17→21:14)
[2022-12-02 06:22] LABS: BASOPHILS % 0.4 % (0.0-2.0); EOSINOPHILS % 0.9 % (0.0-5.0); HEMATOCRIT. 29.9 % (36.0-48.0); HEMOGLOBIN. 10.1 g/dL (12.0-16.0); LYMPHOCYTES % 21.4 % (20.0-50.0); MEAN CORPUSCULAR HEMOGLOBIN 29.7 pg (28.0-32.0); MEAN CORPUSCULAR VOLUME 87.5 fL (81.0-99.0); MEAN PLATELET VOLUME 8.1 fl (7.4-10.4); MONOCYTES % 9.4 % (2.0-8.0); NEUTROPHILS % 67.9 % (40.0-76.0); PLATELET 476 x1000/uL (130-400); RED BLOOD CELL COUNT 3.42 mill/uL (4.2-5.4); RED CELL DISTRIBUTION WIDTH 15.6 % (11.6-14.6)
[2022-12-02] MEDS: INSULIN LISPRO 100 UNITS/ML SUBCUT SCH ×7 (07:40→21:17)
[2022-12-02 08:00] VITALS: BP 139/78
[2022-12-02 08:05] LABS: CHLORIDE 102 mEq/L (98-107)
[2022-12-02 08:12] LABS: PHOSPHORUS 2.7 mg/dL (2.5-4.9)
[2022-12-02] MEDS ORDERED: KCL 20MEQ/100ML PREMIX 100 ML IV NR (09:00)
[2022-12-02] MEDS: LISINOPRIL 10MG TABLET PO SCH (10:17)
[2022-12-02] MEDS: HYDROCHLOROTHIAZIDE 12.5MG CAPSULE PO SCH (10:17)
[2022-12-02] MEDS: PANTOPRAZOLE SODIUM 40 MG/VIAL IV SCH (10:17)
[2022-12-02] MEDS: DOCUSATE SODIUM 100MG CAPSULE PO SCH ×2 (10:18→17:16)
[2022-12-02] MEDS ORDERED: MORPHINE SULFATE 2 MG/ML CPJ (NOT FOR IM USE) IV NR ×2 (11:00→11:15)
[2022-12-02 12:00] VITALS: BP 130/76
[2022-12-02] MEDS ORDERED: POTASSIUM CHLORIDE 20MEQ TABLET SR PO NR (15:15)
[2022-12-02 16:00] VITALS: BP 128/72
[2022-12-02] MEDS: LEVOFLOXACIN 500MG PREMIX 100 ML IV SCH (18:18)
[2022-12-02 20:00] VITALS: BP 128/70
[2022-12-02] MEDS: ATORVASTATIN CALCIUM 20MG TABLET PO SCH (21:16)
[2022-12-02] MEDS: ENOXAPARIN 40MG/0.4ML SYR SUBCUT SCH (21:16)
[2022-12-02] MEDS: INSULIN GLARGINE 100 UNITS/ML SUBCUT SCH (21:21)
[2022-12-02] MEDS: MORPHINE SULFATE 4 MG/ML CPJ (NOT FOR IM USE) IV PRN (23:35)
[2022-12-03] VITALS: BP 141/73
[2022-12-03 00:03] LABS: CHLORIDE 100 mEq/L (98-107)
[2022-12-03] MEDS: MELATONIN 3MG TABLET PO PRN ×2 (02:10→22:41)
[2022-12-03 04:00] VITALS: BP 127/72
[2022-12-03] MEDS: METRONIDAZOLE 500 MG PREMIX 100 ML IV SCH ×3 (05:08→20:44)
[2022-12-03 05:58] LABS: BASOPHILS % 0.5 % (0.0-2.0); EOSINOPHILS % 2.2 % (0.0-5.0); HEMATOCRIT. 29.1 % (36.0-48.0); HEMOGLOBIN. 10.1 g/dL (12.0-16.0); LYMPHOCYTES % 26.1 % (20.0-50.0); MEAN CORPUSCULAR HEMOGLOBIN 30.9 pg (28.0-32.0); MEAN CORPUSCULAR VOLUME 88.4 fL (81.0-99.0); MONOCYTES % 9.6 % (2.0-8.0); NEUTROPHILS % 61.6 % (40.0-76.0); PLATELET 444 x1000/uL (130-400); RED BLOOD CELL COUNT 3.29 mill/uL (4.2-5.4); RED CELL DISTRIBUTION WIDTH 15.4 % (11.6-14.6)
[2022-12-03] MEDS: BLOOD SUGAR DIAGNOSTIC STRIP TEST SCH ×4 (07:01→20:15)
[2022-12-03] MEDS: INSULIN LISPRO 100 UNITS/ML SUBCUT SCH ×7 (07:40→20:44)
[2022-12-03 07:53] LABS: PHOSPHORUS 3.2 mg/dL (2.5-4.9)
[2022-12-03 08:00] VITALS: BP 157/76
[2022-12-03] MEDS: PANTOPRAZOLE SODIUM 40 MG/VIAL IV SCH (09:11)
[2022-12-03] MEDS: HYDROCHLOROTHIAZIDE 12.5MG CAPSULE PO SCH (09:11)
[2022-12-03] MEDS: DOCUSATE SODIUM 100MG CAPSULE PO SCH ×2 (09:11→16:27)
[2022-12-03] MEDS: LISINOPRIL 10MG TABLET PO SCH (09:16)
[2022-12-03] MEDS: MORPHINE SULFATE 4 MG/ML CPJ (NOT FOR IM USE) IV PRN ×2 (11:46→20:29)
[2022-12-03] MEDS: ONDANSETRON HCL 4MG/2ML INJ IV PRN ×2 (11:46→20:29)
[2022-12-03 12:00] VITALS: BP 138/75
[2022-12-03 16:00] VITALS: BP 129/72
[2022-12-03] MEDS: LEVOFLOXACIN 500MG PREMIX 100 ML IV SCH (18:47)
[2022-12-03 19:35] VITALS: BP 136/80
[2022-12-03] MEDS: ATORVASTATIN CALCIUM 20MG TABLET PO SCH (20:29)
[2022-12-03] MEDS: ENOXAPARIN 40MG/0.4ML SYR SUBCUT SCH (20:43)
[2022-12-03] MEDS: INSULIN GLARGINE 100 UNITS/ML SUBCUT SCH (20:44)
[2022-12-04 00:11] VITALS: BP_SYST 125; BP_SYST 126; BP_DIAS 77; BP_DIAS 96
[2022-12-04 04:14] VITALS: BP 130/81
[2022-12-04] MEDS: ONDANSETRON HCL 4MG/2ML INJ IV PRN ×3 (04:19→20:22)
[2022-12-04] MEDS: MORPHINE SULFATE 4 MG/ML CPJ (NOT FOR IM USE) IV PRN ×2 (04:19→11:43)
[2022-12-04] MEDS: METRONIDAZOLE 500 MG PREMIX 100 ML IV SCH ×3 (05:30→20:23)
[2022-12-04] MEDS: BLOOD SUGAR DIAGNOSTIC STRIP TEST SCH ×4 (06:44→20:22)
[2022-12-04] MEDS: INSULIN LISPRO 100 UNITS/ML SUBCUT SCH ×7 (07:40→20:22)
[2022-12-04 08:00] VITALS: BP 139/83
[2022-12-04 08:12] LABS: HEMATOCRIT. 29.2 % (36.0-48.0); MEAN CORPUSCULAR VOLUME 87.7 fL (81.0-99.0); MEAN PLATELET VOLUME 7.4 fl (7.4-10.4); PLATELET 453 x1000/uL (130-400); RED BLOOD CELL COUNT 3.33 mill/uL (4.2-5.4); RED CELL DISTRIBUTION WIDTH 15.3 % (11.6-14.6)
[2022-12-04 08:46] LABS: CHLORIDE 100 mEq/L (98-107)
[2022-12-04 08:58] LABS: PHOSPHORUS 3.8 mg/dL (2.5-4.9)
[2022-12-04] MEDS: HYDROCHLOROTHIAZIDE 12.5MG CAPSULE PO SCH (09:00)
[2022-12-04] MEDS: LISINOPRIL 10MG TABLET PO SCH (09:05)
[2022-12-04] MEDS: DOCUSATE SODIUM 100MG CAPSULE PO SCH ×2 (09:05→17:07)
[2022-12-04] MEDS: PANTOPRAZOLE SODIUM 40 MG/VIAL IV SCH (09:06)
[2022-12-04 11:04] LABS: PLATELET ESTIMATE INCREASED
[2022-12-04 12:00] VITALS: BP 129/75
[2022-12-04] MEDS ORDERED: MAGNESIUM 2 G PREMIX 50 ML IV NR (14:00)
[2022-12-04 16:00] VITALS: BP 126/74
[2022-12-04] MEDS ORDERED: NALOXONE HCL 0.4MG/ML VIAL IV PRN (16:45)
[2022-12-04] MEDS: DEXT 5%/0.9% NACL 1,000 ML IV SCH (17:00)
[2022-12-04] MEDS: LEVOFLOXACIN 500MG PREMIX 100 ML IV SCH (17:07)
[2022-12-04 19:40] VITALS: BP 122/71
[2022-12-04] MEDS: MORPHINE SULFATE 2 MG/ML CPJ (NOT FOR IM USE) IV PRN (20:22)
[2022-12-04] MEDS: ATORVASTATIN CALCIUM 20MG TABLET PO SCH (20:22)
[2022-12-04] MEDS: INSULIN GLARGINE 100 UNITS/ML SUBCUT SCH (21:41)
[2022-12-04] MEDS: MELATONIN 3MG TABLET PO PRN (23:54)
[2022-12-05 00:05] VITALS: BP 149/75
[2022-12-05] MEDS: DEXT 5%/0.9% NACL 1,000 ML IV SCH ×2 (02:20→15:40)
[2022-12-05 04:00] VITALS: BP_SYST 142; BP_SYST 76; BP_DIAS 76
[2022-12-05] MEDS: ONDANSETRON HCL 4MG/2ML INJ IV PRN ×2 (05:21→17:43)
[2022-12-05] MEDS: METRONIDAZOLE 500 MG PREMIX 100 ML IV SCH ×2 (05:22→13:01)
[2022-12-05] MEDS: MORPHINE SULFATE 2 MG/ML CPJ (NOT FOR IM USE) IV PRN (05:22)
[2022-12-05 05:49] LABS: BASOPHILS % 0.7 % (0.0-2.0); EOSINOPHILS % 2.5 % (0.0-5.0); HEMOGLOBIN. 10.5 g/dL (12.0-16.0); LYMPHOCYTES % 26.7 % (20.0-50.0); MEAN CORPUSCULAR HEMOGLOBIN 29.8 pg (28.0-32.0); MEAN CORPUSCULAR VOLUME 88.2 fL (81.0-99.0); MEAN PLATELET VOLUME 7.6 fl (7.4-10.4); MONOCYTES % 7.4 % (2.0-8.0); NEUTROPHILS % 62.7 % (40.0-76.0); PLATELET 427 x1000/uL (130-400); RED BLOOD CELL COUNT 3.52 mill/uL (4.2-5.4); RED CELL DISTRIBUTION WIDTH 15.1 % (11.6-14.6)
[2022-12-05 05:54] LABS: INR 1.1; PROTHROMBIN TIME 11.9 sec (9.6-11.0)
[2022-12-05] MEDS: BLOOD SUGAR DIAGNOSTIC STRIP TEST SCH ×3 (06:51→17:40)
[2022-12-05 07:04] LABS: CHLORIDE 97 mEq/L (98-107)
[2022-12-05] MEDS ORDERED: LIDOCAINE HCL 1% 10 MG/ML 10ML VIAL ONE (07:17)
[2022-12-05] MEDS ORDERED: IOHEXOL-300 50 ML BOTTLE IV ONE (07:17)
[2022-12-05] MEDS: INSULIN LISPRO 100 UNITS/ML SUBCUT SCH ×6 (07:40→18:25)
[2022-12-05] MEDS ORDERED: PROPOFOL 200MG/20ML VIAL IV ONE (08:08)
[2022-12-05] MEDS ORDERED: MIDAZOLAM HCL 2 MG/2 ML VIAL ONE (08:11)
[2022-12-05] MEDS ORDERED: ONDANSETRON HCL 4MG/2ML INJ ONE (08:33)
[2022-12-05] MEDS ORDERED: DEXAMETHASONE 4MG/ML 1ML VIAL ONE (08:34)
[2022-12-05] MEDS ORDERED: SUCCINYLCHOLINE CHLORIDE 200MG/10ML IV ONE (08:34)
[2022-12-05] MEDS ORDERED: FENTANYL CITRATE/PF 50MCG/ML 2ML VIAL ONE (08:35)
[2022-12-05] MEDS: DOCUSATE SODIUM 100MG CAPSULE PO SCH ×2 (08:59→17:44)
[2022-12-05] MEDS: PANTOPRAZOLE SODIUM 40 MG/VIAL IV SCH (08:59)
[2022-12-05] MEDS: HYDROCHLOROTHIAZIDE 12.5MG CAPSULE PO SCH (08:59)
[2022-12-05] MEDS: LISINOPRIL 10MG TABLET PO SCH (08:59)
[2022-12-05] MEDS ORDERED: HYDROMORPHONE HCL/PF 2MG/ML CPJ IV PRN (09:30)
[2022-12-05] MEDS ORDERED: FENTANYL CITRATE/PF 50MCG/ML 2ML VIAL IV PRN (10:00)
[2022-12-05 12:00] VITALS: BP 126/74
[2022-12-05] MEDS ORDERED: ATOR20TA PO (14:21)
[2022-12-05] MEDS: ACETAMINOPHEN 325MG TABLET PO PRN (15:54)
[2022-12-05 16:00] VITALS: BP 130/71
[2022-12-05] MEDS ORDERED: HYDROCODONE/ACETAMINOPHEN 5/325MG TABLET PO NR (17:15)
[2022-12-05] MEDS: LEVOFLOXACIN 500MG PREMIX 100 ML IV SCH (18:00)
[2022-12-05 19:04] VITALS: BP 130/71
[2022-12-05 20:01] VITALS: BP 118/76
== END 2022-12-05 20:20 | disposition home or self-care (01) | DRG 813 ==
LOC: ER 15:06 → MICUSO 16:55 → EDBEDREQ 19:01 → EDBEDREQSVC 20:48 → 7WST 11-17 23:17
PROVIDERS: ADMIT Internal Medicine; ATTEND Internal Medicine
PROC: BF101ZZ Fluoroscopy of Bile Ducts using Low Osmolar Contrast (ICD-10-PCS; 2022-11-25)
PROC: 0F9930Z Drainage of Common Bile Duct with Drainage Device, Percutaneous Approach (ICD-10-PCS; 2022-11-25)
PROC: 0DB78ZX Excision of Stomach, Pylorus, Via Natural or Artificial Opening Endoscopic, Diagnostic (ICD-10-PCS; principal; 2022-12-01)
PROC: 0FPB8DZ Removal of Intraluminal Device from Hepatobiliary Duct, Via Natural or Artificial Opening Endoscopic (ICD-10-PCS; 2022-12-01)
PROC: 0F9930Z Drainage of Common Bile Duct with Drainage Device, Percutaneous Approach (ICD-10-PCS; 2022-12-05)
PROC: 0FB Hepatobiliary System and Pancreas, Excision (ICD-10-PCS; 2022-12-05)
DX: T85.520A Displacement of bile duct prosthesis, initial encounter (principal); A41.9 Sepsis, unspecified organism; E11.10 Type 2 diabetes mellitus with ketoacidosis without coma; K85.90 Acute pancreatitis without necrosis or infection, unspecified; E44.0 Moderate protein-calorie malnutrition; K86.89 Other specified diseases of pancreas; K80.21 Calculus of gallbladder without cholecystitis with obstruction; K83.9 Disease of biliary tract, unspecified; T85.590A Other mechanical complication of bile duct prosthesis, initial encounter; D25.9 Leiomyoma of uterus, unspecified; E03.9 Hypothyroidism, unspecified; E87.6 Hypokalemia; E87.1 Hypo-osmolality and hyponatremia; Y73.2 Prosthetic and other implants, materials and accessory gastroenterology and urology devices associated with adverse incidents; D64.9 Anemia, unspecified; I10 Essential (primary) hypertension; Z20.822 Contact with and (suspected) exposure to COVID-19; K29.70 Gastritis, unspecified, without bleeding; Z79.899 Other long term (current) drug therapy; Z79.84 Long term (current) use of oral hypoglycemic drugs; Z68.20 Body mass index [BMI] 20.0-20.9, adult; Y92.89 Other specified places as the place of occurrence of the external cause
CPT/HCPCS: 36415; 36600; 47531; 47533; 71275; 74018; 74174; 74183; 76700; 77002; 80048; 80053; 80061; 80076; 80202; 80320; 81003; 82010; 82105; 82150; 82247; 82248; 82375; 82607; 82728; 82746; 82805; 82962; 83036; 83540; 83550; 83605; 83735; 83880; 84100; 84145; 84439; 84443; 84481; 84484; 85025; 85044; 86301; 86850; 86900; 87426; 88300; 88305; 93005; 93306; 99291; A9577; C1725; C1760; C1769; C1893; C9113; J0330; J1100; J1170; J1650; J1815; J1885; J1956; J2250; J2270; J2405; J2543; J2704; J3010; J3370; J3475; J3480; J3490; J7030; J7042; J7060; Q9967; G0480